=== PATIENT | female | born 1950 ===

== ENCOUNTER 2024-09-10 01:50 | Observation (INO) | payer MEDICARE, BC ==
[~2024-09-10] VITALS: Ht 157.5 cm; Wt 73.7 kg
[2024-09-10 03:12] LABS: BASOPHILS ABSOLUTE AUTO 0.02 K/mm3 (0.00-0.23); BASOPHILS PERCENT AUTO 0 % (0-2); EOSINOPHILS PERCENT AUTO 2 % (0-6); Hematocrit 41.1 % (33.0-51.0); Hemoglobin 14.4 g/dL (11.5-16.0); IMMATURE GRAN ABSOLUTE AUTO 0.03 K/mm3 (0.00-0.10); IMMATURE GRAN PERCENT AUTO 0 % (0-1); LYMPHOCYTES ABSOLUTE AUTO 0.74 K/mm3 (0.84-5.20); LYMPHOCYTES PERCENT AUTO 9 % (21-46); MONOCYTES ABSOLUTE AUTO 0.74 K/mm3 (0.16-1.47); MONOCYTES PERCENT AUTO 9 % (4-13); Mean Corpuscular HGB 28.9 pg (26.0-34.0); Mean Corpuscular Volume 83 fL (80-100); Mean Platelet Volume 9.2 fL (9.1-12.4); NEUTROPHILS ABSOLUTE AUTO 6.88 K/mm3 (1.96-9.15); NEUTROPHILS PERCENT AUTO 80 % (41-73); Platelet Count 170 K/mm3 (150-400); RDW Coefficient Variation 14.3 % (11.7-14.2); RDW Standard Deviation 42.6 fL (35.1-46.3); Red Blood Cell Count 4.98 M/mm3 (3.80-5.20); White Blood Cell Count 8.61 K/mm3 (4.00-11.30)
[2024-09-10 03:31] LABS: Albumin, Blood 3.8 g/dL (3.4-5.0); Bun/Creatinine Ratio 18.3 (12.0-20.0); Calcium, Blood 9.2 mg/dL (8.5-10.1); Creatinine, Blood 0.88 mg/dL (0.40-1.00); Globulin, Blood 3.9 g/dL (2.2-4.0); Potassium, Blood 3.8 mmol/L (3.5-5.5); Total Protein, Blood 7.7 g/dL (6.4-8.2)
[2024-09-10] MEDS ORDERED: FentaNYL Citrate 50 MCG/ML 2 ML Injection IV PRN ×2 (03:50→06:05)
[2024-09-10] MEDS ORDERED: Tamsulosin HCl 0.4 MG Cap PO ONE (05:20)
[2024-09-10 05:24] LABS: Source, Urine Clean Catch
[2024-09-10 05:32] LABS: Appearance, Urine Hazy (Clear); Bilirubin, Urine Neg (Neg); Blood, Urine 5+ (Neg); Color, Urine Yellow (P-Yellow); Glucose Qualitative, Urine Neg (Neg); Ketones, Urine 2+ (Neg); Leukocyte Esterase, Urine 1+ (Neg); Nitrite, Urine Neg (Neg); Protein, Urine 2+ (Neg); Urobilinogen, Urine NORM (Normal)
[2024-09-10 05:40] LABS: Bacteria Mod /hpf; Red Blood Cells, Urine 50-100 /hpf (0-2); Squamous Epithelial Cells Few /hpf (Few); White Blood Cells, Urine 0-2 /hpf (0-5)
[2024-09-10] MEDS ORDERED: Ondansetron HCl 2 MG / ML 2ML Vial IV ONE (06:00)
[2024-09-10] MEDS ORDERED: Morphine Sulfate 4 MG/1 ML Injection IV ONE (06:00)
[2024-09-10] MEDS ORDERED: MOUNJARO5 MG/0.5 M SQ (06:09)
[2024-09-10] MEDS ORDERED: METFORMIN HCL500 M3 PO (06:09)
[2024-09-10] MEDS ORDERED: ROSUVASTATIN CA20 MG PO (06:09)
[2024-09-10] MEDS ORDERED: FLU VACC TS2024-25(6MOS UP)/PF 45 MCG/0.5 ML SYRINGE IM ONE (06:10)
[2024-09-10] MEDS ORDERED: Ondansetron HCl 2 MG / ML 2ML Vial IV PRN (06:10)
[2024-09-10] MEDS ORDERED: NS 1,000 ML IV SCH (06:10)
[2024-09-10] MEDS ORDERED: Acetaminophen 325 MG TABLET PO PRN (06:10)
[2024-09-10] MEDS ORDERED: CefTRIAXone Sodium 1,000 MG in NS 100 ML IV SCH (06:36)
[2024-09-10] MEDS ORDERED: Insulin Human Lispro 100 Units/ML 3ML Syringe SC SCH (07:30)
[2024-09-10] MEDS ORDERED: Ketorolac Tromethamine 15mg Vial IV PRN (08:15)
[2024-09-10] MEDS ORDERED: Tamsulosin HCl 0.4 MG Cap PO SCH (09:00)
[2024-09-10 09:45] VITALS: BP 125/77
[2024-09-10] MEDS ORDERED: LATA.005SO RIGHTEYE (11:46)
[2024-09-10] MEDS ORDERED: BRIMONIDINE TART5 M2 BOTHEYES (11:47)
[2024-09-10] MEDS ORDERED: COSOPT EYE DROP10 ML LEFTEYE (11:48)
[2024-09-10] MEDS ORDERED: ROCKLATAN 0.022.5 M1 LEFTEYE (11:48)
[2024-09-10 11:51] VITALS: BP 96/58
[2024-09-10 16:28] VITALS: BP 93/56
--- NOTE | 2024-09-10 16:58 | NUR ---
SHIFT SUMMARY PT AOX4, COOPERATIVE, ABLE TO MAKE NEEDS KNOWN. PT HAS USED RESTROOM TWICE TO VOID. SCREENING URINE FOR KIDNEY STONES. RUNNING NS 100ML/HR CURRENTLY. PT COMPLAINTS OF RIGHT FLANKK PAIN RATING 7/10 MEDICATING PER EMAR. TOLERATING PO AND IV MEDICATIONS WELL. BED IN LOWEST POSITION, CALL LIGHT WITHIN REACH.
[2024-09-10 21:05] VITALS: BP 102/66
[2024-09-11 01:23] VITALS: BP 88/54
[2024-09-11] MEDS ORDERED: NS 500 ML IV ONE (01:35)
[2024-09-11 02:21] VITALS: BP 103/65
--- NOTE | 2024-09-11 05:46 | NUR ---
SHIFT SUMMARY PT A&Ox4. PT C/O PAIN AND MEDICATED PER EMAR WITH GOOD EFFECT. PT'S BP WAS 88/[address] NOTIFIED AND 500ml NS BOLUS ORDERED. PT'S BP INCREASED TO 103/65. IV ABX GIVEN PER EMAR. CONTINUING TO STRAIN URINE. NO EVENTS ON TELE. BED IN LOWEST POSITION AND CALL LIGHT IN REACH.
[2024-09-11 05:58] VITALS: BP 114/69
[2024-09-11 06:14] LABS: BASOPHILS ABSOLUTE AUTO 0.01 K/mm3 (0.00-0.23); BASOPHILS PERCENT AUTO 0 % (0-2); EOSINOPHILS ABSOLUTE AUTO 0.21 K/mm3 (0.00-0.68); EOSINOPHILS PERCENT AUTO 6 % (0-6); Hematocrit 35.7 % (33.0-51.0); Hemoglobin 12.2 g/dL (11.5-16.0); IMMATURE GRAN ABSOLUTE AUTO 0.01 K/mm3 (0.00-0.10); IMMATURE GRAN PERCENT AUTO 0 % (0-1); LYMPHOCYTES ABSOLUTE AUTO 0.47 K/mm3 (0.84-5.20); LYMPHOCYTES PERCENT AUTO 13 % (21-46); MONOCYTES ABSOLUTE AUTO 0.37 K/mm3 (0.16-1.47); MONOCYTES PERCENT AUTO 10 % (4-13); Mean Corpuscular HGB 28.7 pg (26.0-34.0); Mean Corpuscular HGB Conc 34.2 g/dL (31.5-36.5); Mean Corpuscular Volume 84 fL (80-100); Mean Platelet Volume 9.2 fL (9.1-12.4); NEUTROPHILS ABSOLUTE AUTO 2.61 K/mm3 (1.96-9.15); NEUTROPHILS PERCENT AUTO 71 % (41-73); Platelet Count 125 K/mm3 (150-400); RDW Coefficient Variation 14.4 % (11.7-14.2); RDW Standard Deviation 44.2 fL (35.1-46.3); Red Blood Cell Count 4.25 M/mm3 (3.80-5.20); White Blood Cell Count 3.68 K/mm3 (4.00-11.30)
[2024-09-11 06:53] LABS: Albumin/Globulin Ratio 0.9 (0.8-1.8); Bilirubin, Total 0.5 mg/dL (0.1-1.0); Bun/Creatinine Ratio 23.8 (12.0-20.0); Calcium, Blood 8.4 mg/dL (8.5-10.1); Creatinine, Blood 0.76 mg/dL (0.40-1.00); Globulin, Blood 3.4 g/dL (2.2-4.0); Potassium, Blood 3.4 mmol/L (3.5-5.5); Total Protein, Blood 6.4 g/dL (6.4-8.2)
[2024-09-11 07:05] VITALS: BP 126/70
[2024-09-11] MEDS ORDERED: Potassium Chloride 20 MEQ TabCR PO ONE (07:40)
[2024-09-11 07:55] VITALS: BP 114/67
[2024-09-11] MEDS ORDERED: Pantoprazole Sodium 20 MG Tab PO SCH (08:00)
[2024-09-11] MEDS ORDERED: Magnesium Hydroxide Conc 10 ML UDC PO ONE (10:00)
[2024-09-11] MEDS ORDERED: IBUP400 PO (10:55)
[2024-09-11] MEDS ORDERED: PANT20 PO (10:56)
[2024-09-11] MEDS ORDERED: TAMS.4ER PO (10:56)
--- NOTE | 2024-09-11 11:11 | NUR ---
DISCHARGE NOTE MS AGUILLON HAS R FLANK PAIN 4/10 WHICH SHE DESCRIBES TOLERABLE. NO BM SINCE FRIDAY, GIVEN MOM. UP AMBULATING TO THE BATHROOM INDEPENDENTLY WITH STEADY GAIT. WRITTEN AND VERBAL DISCHARGE INSTRUCTIONS GIVEN, PT VERBALISED UNDESTANDING AND DENIED ANY QUESTIONS OR CENCERNS. PIV AND TELEMETRY REMOVED. PT IS AWAITING HER SISTER WHO IS DRIVING HER.
[2024-09-11 11:43] VITALS: BP 107/66
--- NOTE | 2024-09-11 11:48 | NUR ---
DISCHARGE LEFT MEDICAL FLOOR VIA W/C WITH ACCESS REPRESENTATIVE AND SISTER FOR DISCHARGE. NO NEW QUESTIONS OR CONCERNS PRIOR TO DISCHARGE.
[2024-09-11] MEDS ORDERED: Ibuprofen 400 MG Tab PO PRN (13:00)
[2024-09-11] MEDS ORDERED: Docusate Sodium 100 MG Cap PO SCH (21:00)
== END 2024-09-11 11:50 | disposition home or self-care (01) ==
LOC: ER 01:50 → MEDS 01:51
PROVIDERS: Emergency Medicine; ADMIT Internal Medicine
DX: N13.1 Hydronephrosis with ureteral stricture, not elsewhere classified (principal); N20.1 Calculus of ureter; K86.2 Cyst of pancreas; E11.9 Type 2 diabetes mellitus without complications; Z94.4 Liver transplant status; E86.0 Dehydration; Z79.84 Long term (current) use of oral hypoglycemic drugs; Z79.899 Other long term (current) drug therapy
CPT/HCPCS: 36415; 74177; 80053; 81001; 82947; 83690; 83880; 85025; 87086; 93005; 93010; 96365-59; 96375; 96376; 99285-25; A9270; G0378; J0696; J1885; J2270; J2405; J2470; J3010; J7030; J7040; Q9967